=== PATIENT | female | born 1945 ===

== ENCOUNTER 2019-07-01 13:20 | Day surgery (SDC) | payer MEDICARE, OTHER ==
[2019-07-01 11:26] LABS: Hematocrit 23.8 % (33.0-51.0); Hemoglobin 7.6 g/dL (11.5-16.0); Mean Corpuscular HGB 30.9 pg (26.0-34.0); Mean Corpuscular HGB Conc 31.9 g/dL (31.5-36.5); Mean Corpuscular Volume 97 fL (80-100); Mean Platelet Volume 10.1 fL (9.1-12.4); NRBC ABSOLUTE 0.29 K/mm3 (0.00-0.02); NRBC Auto 0.3 /100 WBC (0.0-0.2); RDW Coefficient Variation 21.9 % (11.7-14.2); RDW Standard Deviation 73.9 fL (35.1-46.3); Red Blood Cell Count 2.46 M/mm3 (3.80-5.20)
[2019-07-01 11:51] LABS: Platelet Count 3 K/mm3 (150-400); White Blood Cell Count 87.71 K/mm3 (4.00-11.30)
[2019-07-01 12:49] LABS: BASOPHILS PERCENT MAN 0 % (0-2); BLASTS PERCENT MAN 64 % (0-0); EOSINOPHILS PERCENT MAN 0 % (0-6); LYMPHOCYTES ABSOLUTE MAN 31.57 K/mm3 (0.84-5.20); LYMPHOCYTES PERCENT MAN 36 % (21-46); MONOCYTES PERCENT MAN 0 % (4-13); TOTAL CELLS COUNTED 100
[2019-07-01 12:50] LABS: SEG NEUTROPHILS PERCENT MAN 0 % (41-73)
[2019-07-01] MEDS ORDERED: HYDURE500 PO (15:48)
[2019-07-01] MEDS ORDERED: CIPR500 PO (15:49)
[2019-07-01] MEDS ORDERED: ALLO300 PO (15:49)
[2019-07-01] MEDS ORDERED: FLUC100 PO (15:50)
[2019-07-01] MEDS ORDERED: Zovirax400 MG PO (15:50)
[2019-07-01] MEDS ORDERED: ONDA8 PO (15:50)
[2019-07-01] MEDS ORDERED: VENL37.5ER PO (15:50)
[2019-07-01] MEDS ORDERED: Hydrochloroth12.5 MG PO (15:51)
[2019-07-01] MEDS ORDERED: Hair, Skin & N1 EACH PO (15:54)
[2019-07-01] MEDS ORDERED: VITAMIN D5000 UNI1 PO (15:54)
== END 2019-07-01 18:45 | disposition home or self-care (01) ==
LOC: ATC 13:20 → EDSTATUS 13:24 → ATC 18:45
PROVIDERS: Internal Medicine Hematology & Oncology
DX: C91.10 Chronic lymphocytic leukemia of B-cell type not having achieved remission (principal); C92.00 Acute myeloblastic leukemia, not having achieved remission; C93.10 Chronic myelomonocytic leukemia not having achieved remission; D69.3 Immune thrombocytopenic purpura; Z87.891 Personal history of nicotine dependence
CPT/HCPCS: 36415; 36430; 85025; 86850; 86900; 86901; J7050; P9035

== ENCOUNTER 2019-07-05 01:55 | Day surgery (SDC) | payer MEDICARE, OTHER ==
[~2019-07-05 01:55] MED LIST: ALLO300 PO; CIPR500 PO; FLUC100 PO; HYDURE500 PO; Hair, Skin & N1 EACH PO; Hydrochloroth12.5 MG PO; ONDA8 PO; VENL37.5ER PO; VITAMIN D5000 UNI1 PO; Zovirax400 MG PO
== END 2019-07-05 12:03 | disposition home or self-care (01) ==
LOC: ATC 01:55
DX: C92.00 Acute myeloblastic leukemia, not having achieved remission (principal); C91.10 Chronic lymphocytic leukemia of B-cell type not having achieved remission; C93.10 Chronic myelomonocytic leukemia not having achieved remission; D69.3 Immune thrombocytopenic purpura
CPT/HCPCS: 36430; 36569; 86850; 86900; 86901; 86923; C1751; J7050; P9016

== ENCOUNTER 2019-07-09 12:29 | Day surgery (SDC) | payer MEDICARE, OTHER ==
[2019-07-08 11:03] LABS: Hematocrit 27.6 % (33.0-51.0); Mean Corpuscular HGB 30.8 pg (26.0-34.0); Mean Corpuscular HGB Conc 32.6 g/dL (31.5-36.5); NRBC ABSOLUTE 0.37 K/mm3 (0.00-0.02); NRBC Auto 0.3 /100 WBC (0.0-0.2); RDW Coefficient Variation 18.9 % (11.7-14.2); RDW Standard Deviation 62.1 fL (35.1-46.3); Red Blood Cell Count 2.92 M/mm3 (3.80-5.20)
[2019-07-08 11:19] LABS: Mean Corpuscular Volume 95 fL (80-100)
[2019-07-08 11:20] LABS: Platelet Count 11 K/mm3 (150-400); White Blood Cell Count 110.94 K/mm3 (4.00-11.30)
== END 2019-07-09 14:47 | disposition home or self-care (01) ==
LOC: ATC 12:29
PROVIDERS: Internal Medicine Hematology & Oncology
DX: C93.10 Chronic myelomonocytic leukemia not having achieved remission (principal); C92.00 Acute myeloblastic leukemia, not having achieved remission; C91.10 Chronic lymphocytic leukemia of B-cell type not having achieved remission; D69.3 Immune thrombocytopenic purpura; Z87.891 Personal history of nicotine dependence; Z79.899 Other long term (current) drug therapy
CPT/HCPCS: 36430; 36592; 85027; 86900; 86901; J7050; P9053

== ENCOUNTER 2019-07-11 00:25 | Day surgery (SDC) | payer MEDICARE, OTHER ==
[2019-07-11 14:28] LABS: Hematocrit 25.8 % (33.0-51.0); Hemoglobin 8.4 g/dL (11.5-16.0); Mean Corpuscular HGB 31.1 pg (26.0-34.0); Mean Corpuscular HGB Conc 32.6 g/dL (31.5-36.5); Mean Corpuscular Volume 96 fL (80-100); Mean Platelet Volume 11.8 fL (9.1-12.4); NRBC ABSOLUTE 0.32 K/mm3 (0.00-0.02); NRBC Auto 0.3 /100 WBC (0.0-0.2); RDW Coefficient Variation 18.3 % (11.7-14.2); RDW Standard Deviation 61.4 fL (35.1-46.3)
[2019-07-11 14:31] LABS: White Blood Cell Count 95.85 K/mm3 (4.00-11.30)
[2019-07-11 14:33] LABS: Platelet Count 23 K/mm3 (150-400)
[2019-07-11 14:50] LABS: Alanine Aminotransfer (ALT/SGP 54 U/L (12-78); Albumin, Blood 3.5 g/dL (3.4-5.0); Albumin/Globulin Ratio 0.9 (0.8-1.8); Alk Phos 102 U/L (50-136); Anion Gap 9 mmol/L (6-16); Aspartate Aminotrans (AST/SGOT 38 U/L (12-37); Bilirubin, Total 0.4 mg/dL (0.1-1.0); Blood Urea Nitrogen 20 mg/dL (8-24); Bun/Creatinine Ratio 38.5 (12.0-20.0); CO2, Blood 26 mmol/L (21-32); Calcium, Blood 9.1 mg/dL (8.5-10.1); Chloride, Blood 106 mmol/L (98-108); Creatinine, Blood 0.52 mg/dL (0.40-1.00); Globulin, Blood 3.7 g/dL (2.2-4.0); Glomerular Filtration Rate >60 (60-); Glucose, Blood 146 mg/dL (70-99); Phosphorus, Blood 2.8 mg/dL (2.5-4.9); Potassium, Blood 3.4 mmol/L (3.5-5.5); Sodium, Blood 141 mmol/L (136-145); Total Protein, Blood 7.2 g/dL (6.4-8.2); Uric Acid, Blood 5.4 mg/dL (2.6-6.0)
[2019-07-11 15:20] LABS: BASOPHILS PERCENT MAN 0 % (0-2); BLASTS PERCENT MAN 64 % (0-0); EOSINOPHILS PERCENT MAN 0 % (0-6); LYMPHOCYTES ABSOLUTE MAN 28.75 K/mm3 (0.84-5.20); LYMPHOCYTES PERCENT MAN 30 % (21-46); MONOCYTES ABSOLUTE MAN 2.87 K/mm3 (0.16-1.47); MONOCYTES PERCENT MAN 3 % (4-13); OTHER CELL PERCENT MAN 3 % (0-0); TOTAL CELLS COUNTED 100
[2019-07-11 15:40] LABS: SEG NEUTROPHILS PERCENT MAN 0 % (41-73)
== END 2019-07-11 13:50 | disposition home or self-care (01) ==
LOC: ATC 00:25
PROVIDERS: Internal Medicine Hematology & Oncology
DX: C92.00 Acute myeloblastic leukemia, not having achieved remission (principal); C93.10 Chronic myelomonocytic leukemia not having achieved remission; C91.10 Chronic lymphocytic leukemia of B-cell type not having achieved remission; D69.3 Immune thrombocytopenic purpura; Z87.891 Personal history of nicotine dependence
CPT/HCPCS: 36592; 80053; 84100; 84550; 85025

== ENCOUNTER 2019-07-13 14:43 | Day surgery (SDC) | payer MEDICARE, OTHER ==
[2019-07-13 15:17] LABS: Hematocrit 24.9 % (33.0-51.0); Hemoglobin 8.1 g/dL (11.5-16.0); Mean Corpuscular HGB 30.7 pg (26.0-34.0); Mean Corpuscular HGB Conc 32.5 g/dL (31.5-36.5); Mean Corpuscular Volume 94 fL (80-100); Mean Platelet Volume 12.3 fL (9.1-12.4); NRBC ABSOLUTE 0.23 K/mm3 (0.00-0.02); NRBC Auto 0.3 /100 WBC (0.0-0.2); RDW Coefficient Variation 17.8 % (11.7-14.2); RDW Standard Deviation 58.1 fL (35.1-46.3); Red Blood Cell Count 2.64 M/mm3 (3.80-5.20)
[2019-07-13 15:33] LABS: Alanine Aminotransfer (ALT/SGP 45 U/L (12-78); Albumin, Blood 3.3 g/dL (3.4-5.0); Albumin/Globulin Ratio 0.9 (0.8-1.8); Alk Phos 99 U/L (50-136); Anion Gap 5 mmol/L (6-16); Aspartate Aminotrans (AST/SGOT 37 U/L (12-37); Bilirubin, Total 0.4 mg/dL (0.1-1.0); Blood Urea Nitrogen 22 mg/dL (8-24); Bun/Creatinine Ratio 47.4 (12.0-20.0); CO2, Blood 27 mmol/L (21-32); Calcium, Blood 9.2 mg/dL (8.5-10.1); Chloride, Blood 103 mmol/L (98-108); Creatinine, Blood 0.46 mg/dL (0.40-1.00); Globulin, Blood 3.7 g/dL (2.2-4.0); Glomerular Filtration Rate >60 (60-); Glucose, Blood 118 mg/dL (70-99); Phosphorus, Blood 3.3 mg/dL (2.5-4.9); Potassium, Blood 3.9 mmol/L (3.5-5.5); Sodium, Blood 135 mmol/L (136-145); Uric Acid, Blood 6.8 mg/dL (2.6-6.0)
[2019-07-13 16:00] LABS: Platelet Count 12 K/mm3 (150-400); White Blood Cell Count 87.87 K/mm3 (4.00-11.30)
[2019-07-13 16:43] LABS: BASOPHILS PERCENT MAN 0 % (0-2); BLASTS PERCENT MAN 77 % (0-0); EOSINOPHILS PERCENT MAN 0 % (0-6); LYMPHOCYTES ABSOLUTE MAN 18.45 K/mm3 (0.84-5.20); LYMPHOCYTES PERCENT MAN 21 % (21-46); MONOCYTES ABSOLUTE MAN 0.87 K/mm3 (0.16-1.47); MONOCYTES PERCENT MAN 1 % (4-13); NEUTROPHILS ABSOLUTE MAN 0.87 K/mm3 (1.96-9.15); SEG NEUTROPHILS PERCENT MAN 1 % (41-73); TOTAL CELLS COUNTED 100
--- NOTE | 2019-07-14 11:01 | NUR ---
SPOKE WITH DR. SHABBIR DHILLON ANSWERING SERVICE CONCERNING THIS PTS LABS THAT WERE DONE YESTERDAY. DR DHILLON WAS TRANSFERED TO LAB AND TOLD CONCERNING THE CRITICAL VALUE. THE PERSONS # WAS LAB.PAS.
== END 2019-07-13 15:05 | disposition home or self-care (01) ==
LOC: ATC 14:43
PROVIDERS: Internal Medicine Hematology & Oncology
DX: C92.00 Acute myeloblastic leukemia, not having achieved remission (principal); C91.10 Chronic lymphocytic leukemia of B-cell type not having achieved remission; C93.10 Chronic myelomonocytic leukemia not having achieved remission; D69.3 Immune thrombocytopenic purpura; Z87.891 Personal history of nicotine dependence
CPT/HCPCS: 36592; 80053; 84100; 84550; 85025

== ENCOUNTER 2019-07-15 00:16 | Day surgery (SDC) | payer MEDICARE, OTHER ==
[2019-07-15 14:13] LABS: Hematocrit 25.5 % (33.0-51.0); Hemoglobin 8.4 g/dL (11.5-16.0); Mean Corpuscular HGB 30.8 pg (26.0-34.0); Mean Corpuscular HGB Conc 32.9 g/dL (31.5-36.5); Mean Corpuscular Volume 93 fL (80-100); NRBC ABSOLUTE 0.21 K/mm3 (0.00-0.02); NRBC Auto 0.4 /100 WBC (0.0-0.2); RDW Standard Deviation 57.5 fL (35.1-46.3); Red Blood Cell Count 2.73 M/mm3 (3.80-5.20)
[2019-07-15 14:18] LABS: White Blood Cell Count 51.03 K/mm3 (4.00-11.30)
[2019-07-15 14:19] LABS: Platelet Count 6 K/mm3 (150-400)
[2019-07-15 14:34] LABS: Alanine Aminotransfer (ALT/SGP 42 U/L (12-78); Albumin, Blood 3.4 g/dL (3.4-5.0); Albumin/Globulin Ratio 0.9 (0.8-1.8); Alk Phos 98 U/L (50-136); Anion Gap 7 mmol/L (6-16); Aspartate Aminotrans (AST/SGOT 33 U/L (12-37); Bilirubin, Total 0.5 mg/dL (0.1-1.0); Blood Urea Nitrogen 24 mg/dL (8-24); Bun/Creatinine Ratio 47.5 (12.0-20.0); CO2, Blood 26 mmol/L (21-32); Calcium, Blood 9.3 mg/dL (8.5-10.1); Chloride, Blood 103 mmol/L (98-108); Creatinine, Blood 0.51 mg/dL (0.40-1.00); Globulin, Blood 3.8 g/dL (2.2-4.0); Glomerular Filtration Rate >60 (60-); Glucose, Blood 93 mg/dL (70-99); Phosphorus, Blood 3.1 mg/dL (2.5-4.9); Potassium, Blood 3.7 mmol/L (3.5-5.5); Sodium, Blood 136 mmol/L (136-145); Total Protein, Blood 7.2 g/dL (6.4-8.2); Uric Acid, Blood 6.8 mg/dL (2.6-6.0)
[2019-07-15 14:51] LABS: BASOPHILS PERCENT MAN 0 % (0-2); BLASTS PERCENT MAN 72 % (0-0); EOSINOPHILS PERCENT MAN 0 % (0-6); LYMPHOCYTES ABSOLUTE MAN 12.75 K/mm3 (0.84-5.20); LYMPHOCYTES PERCENT MAN 25 % (21-46); MONOCYTES ABSOLUTE MAN 1.53 K/mm3 (0.16-1.47); MONOCYTES PERCENT MAN 3 % (4-13); TOTAL CELLS COUNTED 100
== END 2019-07-15 13:40 | disposition home or self-care (01) ==
LOC: ATC 00:16
PROVIDERS: Internal Medicine Hematology & Oncology
DX: C92.00 Acute myeloblastic leukemia, not having achieved remission (principal)
CPT/HCPCS: 36592; 80053; 84100; 84550; 85025; 86900; 86901

== ENCOUNTER 2019-07-16 12:34 | Day surgery (SDC) | payer MEDICARE, OTHER ==
--- NOTE | 2019-07-16 13:44 | NUR ---
SHE ARRIVED TO ROOM 344 AN OUTPT FOR A PLATELET INFUSION. ORDERS ENTERED. BLOOD DRAWN EASILY FROM HER PICC LINE. SHE HAS BEEN TRYING TO SLEEP. SHE IS A&O, WEAK, BUT ABLE TO TAKE A FEW STEPS OVER TO THE BED. I GAVE HER ICE WATER TO DRINK AND SHE HAS A WARM BLANKET. SHE SAYS SHE ATE A LATE BREAKFAST AND IS NOT HUNGRY AT THIS TIME.
--- NOTE | 2019-07-16 15:29 | NUR ---
PLATELET PHERESIS IS READY. WILL START INFUSION WHEN AVAILABLE.
--- NOTE | 2019-07-16 17:24 | NUR ---
NO PROBLEMS WITH PLATELET INFUSION. SHE HAS BEEN ESCORTED OUT TO HER CAR. NO COMPLAINTS. CAP CHANGED ON HER PICC LINE POST TRANSFUSION.
== END 2019-07-16 17:10 | disposition home or self-care (01) ==
LOC: TRN 12:34 → ORSCMMR 12:35 → MEDS 17:10 → TRN 17:10 → EDSTATUS 07-29 14:18
DX: C92.00 Acute myeloblastic leukemia, not having achieved remission (principal); C91.10 Chronic lymphocytic leukemia of B-cell type not having achieved remission; C93.10 Chronic myelomonocytic leukemia not having achieved remission; D69.3 Immune thrombocytopenic purpura; Z87.891 Personal history of nicotine dependence; Z79.899 Other long term (current) drug therapy
CPT/HCPCS: 36430; 86900; 86901; P9053

== ENCOUNTER 2019-07-20 20:16 | Inpatient (IN) | payer MEDICARE, OTHER ==
[~2019-07-20] VITALS: Ht 170.2 cm; Wt 50.4 kg
[2019-07-20 20:51] LABS: Hematocrit 25.2 % (33.0-51.0); Hemoglobin 8.4 g/dL (11.5-16.0); Mean Corpuscular HGB 30.9 pg (26.0-34.0); Mean Corpuscular HGB Conc 33.3 g/dL (31.5-36.5); Mean Corpuscular Volume 93 fL (80-100); RDW Coefficient Variation 16.3 % (11.7-14.2); RDW Standard Deviation 53.1 fL (35.1-46.3); Red Blood Cell Count 2.72 M/mm3 (3.80-5.20); White Blood Cell Count 1.27 K/mm3 (4.00-11.30)
[2019-07-20 20:55] LABS: Platelet Count 2 K/mm3 (150-400)
[2019-07-20 21:18] LABS: Alanine Aminotransfer (ALT/SGP 80 U/L (12-78); Albumin, Blood 3.2 g/dL (3.4-5.0); Albumin/Globulin Ratio 0.8 (0.8-1.8); Alk Phos 72 U/L (50-136); Anion Gap 7 mmol/L (6-16); Aspartate Aminotrans (AST/SGOT 99 U/L (12-37); Bilirubin, Total 0.8 mg/dL (0.1-1.0); Blood Urea Nitrogen 40 mg/dL (8-24); Bun/Creatinine Ratio 66.1 (12.0-20.0); CO2, Blood 25 mmol/L (21-32); Chloride, Blood 102 mmol/L (98-108); Creatinine, Blood 0.61 mg/dL (0.40-1.00); Globulin, Blood 3.8 g/dL (2.2-4.0); Glomerular Filtration Rate >60 (60-); Glucose, Blood 148 mg/dL (70-99); Potassium, Blood 4.4 mmol/L (3.5-5.5); Sodium, Blood 134 mmol/L (136-145)
[2019-07-20 21:28] LABS: BASOPHILS PERCENT MAN 0 % (0-2); BLASTS PERCENT MAN 46 % (0-0); EOSINOPHILS PERCENT MAN 0 % (0-6); LYMPHOCYTES ABSOLUTE MAN 0.68 K/mm3 (0.84-5.20); LYMPHOCYTES PERCENT MAN 54 % (21-46); MONOCYTES PERCENT MAN 0 % (4-13); TOTAL CELLS COUNTED 100
[2019-07-20 22:37] LABS: Source, Urine Clean Catch
[2019-07-20 22:46] LABS: Bilirubin, Urine Neg (Neg); Blood, Urine 3+ (Neg); Glucose Qualitative, Urine Neg (Neg); Ketones, Urine Neg (Neg); Leukocyte Esterase, Urine Neg (Neg); Nitrite, Urine Neg (Neg); Protein, Urine 2+ (Neg); Urobilinogen, Urine NORM (Normal)
[2019-07-20 22:50] LABS: Appearance, Urine Clear (Clear); Color, Urine Yellow (P-Yellow)
[2019-07-20 22:52] LABS: Bacteria Mod /hpf; Red Blood Cells, Urine Rare /hpf (0-2); Squamous Epithelial Cells Few /hpf (Few); White Blood Cells, Urine Rare /hpf (0-5)
[2019-07-20 23:59] LABS: NEUTROPHILS PERCENT AUTO 0 % (41-73); SEG NEUTROPHILS PERCENT MAN 0 % (41-73)
[2019-07-21 00:02] LABS: Adenovirus Not Detected (NOT DETECT); Bordetella pertussis Not Detected (NOT DETECT); Chlamydophila pneumoniae Not Detected (NOT DETECT); Coronavirus 229E Not Detected (NOT DETECT); Coronavirus HKU1 Not Detected (NOT DETECT); Coronavirus NL63 Not Detected (NOT DETECT); Coronavirus OC43 Not Detected (NOT DETECT); Human Metapneumovirus Not Detected (NOT DETECT); Human Rhinovirus/Enterovirus Not Detected (NOT DETECT); Influenza A Not Detected (NOT DETECT); Influenza A/2009-H1 Not Detected (NOT DETECT); Influenza A/H1 Not Detected (NOT DETECT); Influenza A/H3 Not Detected (NOT DETECT); Influenza B Not Detected (NOT DETECT); Mycoplasma pneumoniae Not Detected (NOT DETECT); Parainfluenza Virus 1 Not Detected (NOT DETECT); Parainfluenza Virus 2 Not Detected (NOT DETECT); Parainfluenza Virus 3 Not Detected (NOT DETECT); Parainfluenza Virus 4 Not Detected (NOT DETECT); Respiratory Syncytial Virus Not Detected (NOT DETECT)
--- NOTE | 2019-07-21 00:35 | NUR ---
ASSUMED PT CARE FROM CHRISTIE LARSEN PT ARRIVED ON UNIT VIA STRETCHER AND WAS ABLE TO STAND AND TRANSFER TO ICU BED. PT ARRIVED SHIVERING STATING HOW COLD SHE WAS. TEMP 97.9; THEREFORE, PT WAS WRAPPED WITH WARM BLANKETS TO HER COMFORT. PT ALERT AND ORIENTED X4; ABLE TO MAKE NEEDS KNOWN. BLOOD PRESSURE LOW UPON ARRIVAL; PER ED REPORT PT ARRIVED WITH SBP 115 AND HAS SLOWLY DECLINED SINCE THEN WITH SBP 90'S UPON ARRIVAL. TWO LITER BOLUSES COMPLETE UPON ARRIVAL TO UNIT. PT AGREED TO RECEIVING VASOPRESSORS IF NEEDED. DAUGHTER AT BEDSIDE WHO IS PLEASANT AND COOPERATIVE WITH CARE. NS STARTED AT 200MLS/HR; ALONG WITH MERREM AND ACYCLOVIR. PT ORIENTED TO ROOM AND CALL LIGHT; PT IS ABLE TO MAKE NEEDS KNOWN.
--- NOTE | 2019-07-21 02:30 | NUR ---
PT'S SON IN LAW ARRIVED AND REQUESTED AN UPDATE REGARDING THE PT'S STATUS. SON IN LAW VERY ADAMENT ABOUT PT WANTING TO GO HOME AND THERE THERE "ISN'T ANYTHING ELSE THAT CAN BE DONE TO PROLONG PT'S LIFE". SON IN LAW WAS EDUCATED REGARDING PT'S WISHES TO PROLONG LIFE AT LEAST ANOTHER DAY UNTIL HER SON COULD BE HERE FROM [place] HE HAD ALREADY PURCHASED HIS PLANE TICKET. PT KEPT ASKING HER DAUGHTER WHAT SHE THOUGHT AND WANTED. I REASSURED PT THAT SHE SHOULD MAKE HER DECISIONS SOLEY BASED UPON WHAT SHE WANTED TO BE COMFORTABLE IN HER LAST STAGES OF LIFE. ALSO EDUCATED FAMILY AND PT REGARDING GOING HOME PRIOR TO HOSPICE SERVICES BEING CONSULTED D/T NO AVAILABILITY IN MEDICATIONS. SON IN LAW STATED THAT HE "OWNED AND AMBULANCE" AND COULD GET HER BACK HERE IF NEEDED. PT WAS READY TO DISCUSS GOING HOME TO BE COMFORTABLE WITH DR. MAYS.
--- NOTE | 2019-07-21 02:50 | NUR ---
CALL PLACED TO DR. MAYS IN REGARDS TO PT DECIDING TO GO HOME INSTEAD OF STAYING HERE.
--- NOTE | 2019-07-21 03:06 | NUR ---
DR. MAYS IN ROOM TO DISCUSS PT'S WISHES REGARDING GOING HOME RATHER THAN STAYING IN THE HOSPITAL ON COMFORT CARE. PT ADAMENT ABOUT GOING HOME TO NATURALLY AND NOT RECEIVING ANYMORE TREATMENTS. DR. MAYS EXPLAINED TO FAMILY AND PT THAT THEY WOULD NEED TO CONTACT DR. DHILLON OFFICE TOMORROW IN ORDER TO GET A HOSPICE REFERRAL; PT AND FAMILY VERBALIZED UNDERSTANDING. FLUIDS STOPPED AT THIS TIME. WAITING FOR DISCHARGE ORDERS FROM DR. MAYS
[2019-07-21] MEDS ORDERED: Augmentin 875-1 EACH PO (03:35)
--- NOTE | 2019-07-21 03:53 | NUR ---
DISCHARGE PERIPHERAL IV TO LEFT WRIST WAS DISCONTINUED. DISCHARGE INSTRUCTIONS WERE GONE OVER WITH BOTH PATIENT AND FAMILY. AUGMENTIN WAS CALLED INTO [facility] PER FAMILIES REQUEST. PT WAS TRANSFERRED TO WHEELCHAIR WITH ALL BELONGINGS AND ASSISTED OUT TO CAR. FAMILY WAS GIVEN PACKET OF DISCHARGE INFORMATION WITH ICU'S UNIT NUMBER FOR ANY QUESTIONS OR CONCERNS. PT VERY GRATEFUL OF CARE WHILE SHE WAS HERE, BUT STATED "IT WASN'T BECAUSE OF US" THAT SHE HAD TO LEAVE. PT REASSURED THAT WHAT SHE WAS DOING WAS WHAT WAS BEST FOR HER. FAMILY TEARFUL, BUT APPRECIATIVE AND GRATEFUL OF SERVICES.
== END 2019-07-21 03:55 | disposition hospice, home (50) | DRG 871 ==
LOC: ER 20:16 → ICUW 23:40
PROVIDERS: Physician Assistant; ADMIT Family Medicine
DX: A41.9 Sepsis, unspecified organism (principal); R65.21 Severe sepsis with septic shock; C91.00 Acute lymphoblastic leukemia not having achieved remission; B37.0 Candidal stomatitis; D69.3 Immune thrombocytopenic purpura; E87.1 Hypo-osmolality and hyponatremia; C93.10 Chronic myelomonocytic leukemia not having achieved remission; Z51.5 Encounter for palliative care; I10 Essential (primary) hypertension; Z90.81 Acquired absence of spleen; D63.0 Anemia in neoplastic disease; D70.9 Neutropenia, unspecified
CPT/HCPCS: 0099U; 36415; 36430; 36592; 71046; 80053; 81001; 83605; 83735; 84100; 84484; 85025; 86850; 86900; 86901; 86923; 87040; 87077; 87086; 87186; 93005; 93010; 96365; 96366; 96367; 99285-25; A9270; J0133; J2185; J2543; J3370; J7030; J7050; J7120; P9016; P9035

== ENCOUNTER 2019-07-23 10:07 | Day surgery (SDC) | payer MEDICARE, OTHER ==
--- NOTE | 2019-07-22 11:10 | NUR ---
PT WAS DISCHARGED FROM ICU LAST NIGHT WITH A HOSPIC/COMFORT CARE ODERS. PT CAME IN FOR LABS BUT WAS NOT SURE IF THE DR WANTED HER TO COME IN. SON IN LAW WITH PT. PT WITH LARGE SWOLLEN IDSCOLORED AREA ON R LOWER LIP.
[2019-07-22 11:33] LABS: Hematocrit 19.5 % (33.0-51.0); Hemoglobin 6.4 g/dL (11.5-16.0); Mean Corpuscular HGB 31.4 pg (26.0-34.0); Mean Corpuscular HGB Conc 32.8 g/dL (31.5-36.5); Mean Platelet Volume 10.9 fL (9.1-12.4); RDW Coefficient Variation 16.1 % (11.7-14.2); RDW Standard Deviation 54.8 fL (35.1-46.3); Red Blood Cell Count 2.04 M/mm3 (3.80-5.20)
[2019-07-22 11:42] LABS: Alanine Aminotransfer (ALT/SGP 62 U/L (12-78); Albumin, Blood 2.8 g/dL (3.4-5.0); Albumin/Globulin Ratio 0.8 (0.8-1.8); Alk Phos 63 U/L (50-136); Anion Gap 4 mmol/L (6-16); Aspartate Aminotrans (AST/SGOT 46 U/L (12-37); Bilirubin, Total 0.5 mg/dL (0.1-1.0); Blood Urea Nitrogen 23 mg/dL (8-24); Bun/Creatinine Ratio 49.4 (12.0-20.0); CO2, Blood 25 mmol/L (21-32); Calcium, Blood 8.7 mg/dL (8.5-10.1); Chloride, Blood 109 mmol/L (98-108); Creatinine, Blood 0.47 mg/dL (0.40-1.00); Globulin, Blood 3.6 g/dL (2.2-4.0); Glomerular Filtration Rate >60 (60-); Glucose, Blood 128 mg/dL (70-99); Phosphorus, Blood 2.1 mg/dL (2.5-4.9); Potassium, Blood 3.2 mmol/L (3.5-5.5); Sodium, Blood 138 mmol/L (136-145); Total Protein, Blood 6.4 g/dL (6.4-8.2); Uric Acid, Blood 4.9 mg/dL (2.6-6.0)
[2019-07-22 11:59] LABS: Mean Corpuscular Volume 96 fL (80-100)
[2019-07-22 12:01] LABS: White Blood Cell Count 0.76 K/mm3 (4.00-11.30)
[2019-07-22 12:02] LABS: Platelet Count 6 K/mm3 (150-400)
[2019-07-22 12:57] LABS: BASOPHILS PERCENT MAN 0 % (0-2); BLASTS PERCENT MAN 14 % (0-0); EOSINOPHILS PERCENT MAN 0 % (0-6); LYMPHOCYTES ABSOLUTE MAN 0.65 K/mm3 (0.84-5.20); LYMPHOCYTES PERCENT MAN 86 % (21-46); MONOCYTES PERCENT MAN 0 % (4-13); TOTAL CELLS COUNTED 50
[~2019-07-23 10:07] MED LIST changes: +Augmentin 875-1 EACH PO
== END 2019-07-23 14:46 | disposition home or self-care (01) ==
LOC: ATC 10:07
PROVIDERS: Internal Medicine Hematology & Oncology
DX: C93.10 Chronic myelomonocytic leukemia not having achieved remission (principal); C92.00 Acute myeloblastic leukemia, not having achieved remission; C91.10 Chronic lymphocytic leukemia of B-cell type not having achieved remission; D69.3 Immune thrombocytopenic purpura; Z87.891 Personal history of nicotine dependence; Z79.899 Other long term (current) drug therapy
CPT/HCPCS: 36430; 36592; 80053; 84100; 84550; 85025; 86900; 86901; J7050; P9053

== ENCOUNTER 2019-07-25 13:52 | Day surgery (SDC) | payer MEDICARE, OTHER ==
[2019-07-25 14:43] LABS: Hematocrit 19.2 % (33.0-51.0); Hemoglobin 6.3 g/dL (11.5-16.0); Mean Corpuscular HGB 31.3 pg (26.0-34.0); Mean Corpuscular HGB Conc 32.8 g/dL (31.5-36.5); Mean Corpuscular Volume 96 fL (80-100); Mean Platelet Volume 10.1 fL (9.1-12.4); RDW Coefficient Variation 15.9 % (11.7-14.2); RDW Standard Deviation 54.9 fL (35.1-46.3); Red Blood Cell Count 2.01 M/mm3 (3.80-5.20); White Blood Cell Count 1.51 K/mm3 (4.00-11.30)
[2019-07-25 14:45] LABS: Platelet Count 14 K/mm3 (150-400)
[2019-07-25 15:09] LABS: Alanine Aminotransfer (ALT/SGP 47 U/L (12-78); Albumin, Blood 2.8 g/dL (3.4-5.0); Albumin/Globulin Ratio 0.8 (0.8-1.8); Alk Phos 70 U/L (50-136); Anion Gap 5 mmol/L (6-16); Aspartate Aminotrans (AST/SGOT 46 U/L (12-37); Bilirubin, Total 0.3 mg/dL (0.1-1.0); Blood Urea Nitrogen 14 mg/dL (8-24); Bun/Creatinine Ratio 30.8 (12.0-20.0); CO2, Blood 26 mmol/L (21-32); Chloride, Blood 106 mmol/L (98-108); Creatinine, Blood 0.45 mg/dL (0.40-1.00); Globulin, Blood 3.4 g/dL (2.2-4.0); Glomerular Filtration Rate >60 (60-); Glucose, Blood 116 mg/dL (70-99); Phosphorus, Blood 2.5 mg/dL (2.5-4.9); Potassium, Blood 4.1 mmol/L (3.5-5.5); Sodium, Blood 137 mmol/L (136-145); Total Protein, Blood 6.2 g/dL (6.4-8.2); Uric Acid, Blood 2.9 mg/dL (2.6-6.0)
[2019-07-25 15:37] LABS: BASOPHILS PERCENT MAN 0 % (0-2); BLASTS PERCENT MAN 10 % (0-0); EOSINOPHILS ABSOLUTE MAN 0.03 K/mm3 (0.00-0.68); EOSINOPHILS PERCENT MAN 2 % (0-6); LYMPHOCYTES ABSOLUTE MAN 1.32 K/mm3 (0.84-5.20); LYMPHOCYTES PERCENT MAN 88 % (21-46); MONOCYTES PERCENT MAN 0 % (4-13); TOTAL CELLS COUNTED 50
--- NOTE | 2019-07-26 09:50 | NUR ---
Late entry for 07/25/19 at 1430: Palliative Care Note: Pt came into the [facility] for lab draw from PICC line and she and her son and daughter had questions re: nursing care at home. Pt's daughter states that they are not meaning hospice, but want to know what other options are available to her. Pt lives alone, however she has been staying with her daughter and son in law recently. They both work all day and are worried that she is home alone. Pt reports she feels safe staying alone but family has concerns. She has a son from [place] who is also visiting at this time. She reports that she has had two chemotherapy infusions and she is due to have one more but they are waiting a little extra time in between the second and third treatments. She reports that she has a follow up appointment with Dr. Lara next Monday and has an initial appointment with a new PCP to establish care later that same week. Laura states "I'm afraid my body is giving out. My bone marrow is full of cancer." She states she is not ready to "give up yet," however she reports she has had conversations with her children and states that she does not want to suffer if there is nothing more that can be done. Currently she has mouth sores and c/o a sore throat. She has magic mouthwash and an OTC lidocaine that helps with the pain. She states Dr. Lara is aware of her mouth sores and she plans to have him look at her sores when she sees him next Monday. She is concerned that the sores aren't healing. Discussed chemotherapy and difficulty of healing while receiving chemo treatments. Discussed options of HH vs. hospice, vs. option of private pay caregivers. She is not a , however she does have medicare coverage in place. Discussed differences between HH and hospice. Laura plans to follow up with Dr. Lara next week after having labs done and will get his opinion on how her treatment is going. She will return to the [facility] next week for lab draws and this automobile and property underwriter encouraged her to ask staff if she had any additional questions to please ask them. PC will continue to follow and assist with advanced care planning and symptom management.
== END 2019-07-25 14:33 | disposition home or self-care (01) ==
LOC: ATC 13:52
PROVIDERS: Internal Medicine Hematology & Oncology
DX: C93.10 Chronic myelomonocytic leukemia not having achieved remission (principal); C92.00 Acute myeloblastic leukemia, not having achieved remission; C91.10 Chronic lymphocytic leukemia of B-cell type not having achieved remission; D69.3 Immune thrombocytopenic purpura; Z79.899 Other long term (current) drug therapy
CPT/HCPCS: 36430; 36592; 80053; 84100; 84550; 85025; 86850; 86900; 86901; 86923; J7040; P9016